=== PATIENT | female | born 2000 | race Hispanic/Latino ===

== ENCOUNTER 2018-09-20 13:00 | Emergency (ER) | payer OTHER ==
[2018-09-20 13:38] LABS: #Eosinphils 0.1 thou/uL (0.0-0.7); #Lymphocytes 2.3 thou/uL (1.20-3.40); #Monocytes 0.4 thou/uL (0.11-0.59); #Neutrophils 4.7 thou/uL (1.40-6.50); %Basophils 0.6 % (0.0-1.0); %Eosinophils 0.9 % (0.0-10.0); %Lymphocytes 30.4 % (28.0-48.0); %Monocytes 5.3 % (0.0-4.0); %Neutrophils 62.8 % (31.0-61.0); Hemoglobin 13.9 g/dL (12.0-16.0); Mean Corpuscular HGB CONC 33.1 g/dL (32.0-36.0); Mean Corpuscular Volume 93.6 fL (78.0-98.0); Mean Platelet Volume 9.1 fL (7.4-10.4); Platelet Count 228 thou/uL (130-400); RBC Distribution Width 11.1 % (11.5-14.5); Red Blood Cell (RBC) Count 4.49 mill/uL (4.00-5.20); White Blood Cell (WBC) Count 7.5 thou/uL (4.8-10.8)
[2018-09-20 13:53] LABS: BHCG - Serum Negative (NEGATIVE); Pregs Control Background? CLEAR/WHITE (CLR/WHITE); Pregs Control Bar Appear? YES (CONTROL BAR)
== END 2018-09-20 14:16 | disposition home or self-care (01) ==
LOC: ERS 13:00
DX: N93.9 Abnormal uterine and vaginal bleeding, unspecified (principal)
CPT/HCPCS: 36415; 84703; 85025; 99284

== ENCOUNTER 2019-10-08 22:36 | Emergency (ER) | payer OTHER ==
[2019-10-08 23:12] LABS: Bilirubin Negative (Negative); Blood, Urine Negative (Negative); Clarity Clear (Clear); Glucose, Urine (Dipstick) Normal (Negative); Leukocyte Negative Leu/uL (Negative); Nitrite Negative (Negative); Protein, Urine (Dipstick) Negative (Neg-Trace); Urobilinogen Normal mg/dL (Less than 2)
[2019-10-08 23:13] LABS: Pregnancy Test - Urine (BHCG) POSITIVE (Negative); Pregu Control Background? CLEAR/WHITE (CLR/WHITE); Pregu Control Bar Appear? YES (CONTROL BAR); Specific Gravity 1.018 (1.002-1.036)
[2019-10-09 00:11] LABS: #Basophils 0.1 thou/uL (0.0-0.2); #Eosinphils 0.1 thou/uL (0.0-0.7); #Lymphocytes 2.6 thou/uL (1.20-3.40); #Monocytes 0.7 thou/uL (0.11-0.59); #Neutrophils 6.3 thou/uL (1.40-6.50); %Eosinophils 0.9 % (0.0-10.0); %Lymphocytes 26.6 % (21.0-51.0); %Monocytes 7.3 % (0.0-10.0); %Neutrophils 64.3 % (42.0-75.0); Hemoglobin 12.7 g/dL (12.0-16.0); Mean Corpuscular HGB CONC 35.2 g/dL (32.0-36.0); Mean Corpuscular Hemoglobin 32.5 pg (27.0-31.0); Mean Corpuscular Volume 92.4 fL (78.0-98.0); Mean Platelet Volume 9.3 fL (7.4-10.4); Platelet Count 207 thou/uL (130-400); RBC Distribution Width 10.9 % (11.5-14.5); Red Blood Cell (RBC) Count 3.89 mill/uL (4.20-5.40); White Blood Cell (WBC) Count 9.8 thou/uL (4.8-10.8)
--- NOTE | 2019-10-09 08:10 | ULT ---
PRELIMINARY REPORT/[facility]/EMERGENCY AFTER HOURS PROCEDURE EXAM: US Obstetrical, Complete <14 weeks CLINICAL HISTORY: Pelvic cramping pain, brown vaginal discharge, N/V TECHNIQUE: Transabdominal imaging of the maternal pelvis and a <14 week gestation with image documentation. COMPARISON: None provided. FINDINGS: GESTATION: CRL of 5.4 mm corresponds to 6 weeks 2 days with a heartbeat of 113 bpm UTERUS: Unremarkable. No myometrial mass. Measures 8.1 x 4.0 x 5.0 cm CERVIX: Closed. Unremarkable. OVARIES: Unremarkable. No mass. The RIGHT side measures 3.5 x 2.3 x 2.3 cm and the LEFT side measures 2.7 x 1 .7 x 3.1 cm FREE FLUID: Mild cul-de-sac free fluid. IMPRESSION: Single viable intrauterine . No acute abnormality. ELECTRONICALLY SIGNED BY: Larry Tam MD Oct 09, 2019 1:02:24 AM CDT This report is intended for review by the ordering physician only, in accordance of law. If you recei ve this report in error, please call [facility] at [phone]. FINAL REPORT EMERGENT AFTER HOURS AFTER HOURS OB ULTRASOUND: IMPRESSION: Agree with the preliminary interpretation. POS: [facility]
[2019-10-12 15:42] LABS: Chlamydia by PCR Not Detected (NotDetected); GC by PCR Not Detected (NotDetected)
== END 2019-10-09 02:04 | disposition home or self-care (01) ==
LOC: ERS 22:36
DX: O99.89 Other specified diseases and conditions complicating pregnancy, childbirth and the puerperium (principal); N89.8 Other specified noninflammatory disorders of vagina; Z3A.01 Less than 8 weeks gestation of pregnancy
CPT/HCPCS: 36415; 76856; 81003; 81025; 84702; 85025; 86900; 86901; 87480; 87491; 87510; 87591; 87660; 93976

== ENCOUNTER 2020-05-26 11:28 | Inpatient (IN) | payer OTHER ==
[~2020-05-26 11:28] MED LIST: Bupivacaine HCl 0.25%/Epi 0.0005/PF 10 ML VIAL FS ONE
[2020-05-26] MEDS ORDERED: hydrALAZINE 20 MG/ML VIAL SLOW IVP PRN ×2 (11:57→12:39)
[2020-05-26 12:21] VITALS: BMI 26.6
[2020-05-26 12:27] LABS: Amnisure Test No Membranes Rupture (No Rupture)
[2020-05-26 12:28] LABS: Amnisure Internal Control QC ACCEPTABLE (ACCEPTABLE)
[2020-05-26] MEDS ORDERED: Lidocaine 1% (PF) 30 ML VIAL SC PRN (12:39)
[2020-05-26] MEDS ORDERED: Ondansetron PF 4 MG/2 ML Vial IVP PRN ×2 (12:39→20:25)
[2020-05-26] MEDS ORDERED: HYDROcodone/Acetaminophen 5/325 mg Tablet PO PRN ×2 (12:39)
[2020-05-26] MEDS ORDERED: Carboprost 250 MCG/ML AMP IM PRN (12:39)
[2020-05-26] MEDS ORDERED: Ibuprofen 800 MG TAB PO PRN (12:39)
[2020-05-26] MEDS ORDERED: Promethazine HCl 25 MG/ML VIAL IM PRN ×2 (12:39→20:25)
[2020-05-26] MEDS ORDERED: Misoprostol 200 MCG TAB PR PRN (12:39)
[2020-05-26] MEDS ORDERED: Diphenoxylate HCl/Atropine Tablet PO PRN ×2 (12:39)
[2020-05-26] MEDS ORDERED: Methylergonovine 0.2 MG/ML VIAL IM PRN (12:39)
[2020-05-26] MEDS ORDERED: Acetaminophen 500 MG TAB PO PRN (12:39)
[2020-05-26] MEDS ORDERED: Butorphanol Tartrate 1 MG/ML VIAL SLOW IVP PRN (12:39)
[2020-05-26 13:19] LABS: Mean Corpuscular Hemoglobin 28.6 pg (27.0-31.0); Mean Corpuscular Volume 84.2 fL (78.0-98.0); Platelet Count 182 thou/uL (130-400); RBC Distribution Width 12.4 % (11.5-14.5); Red Blood Cell (RBC) Count 4.19 mill/uL (4.20-5.40); White Blood Cell (WBC) Count 9.2 thou/uL (4.8-10.8)
[2020-05-26 13:57] LABS: HBSAg Index 0.23 S/CO (0-0.99); Hep B Surf Ag Non-Reactive S/CO (NonReactive)
[2020-05-26 13:58] LABS: Syphilis Antibody Nonreactive (Nonreactive); Syphilis Antibody Index 0.04 S/CO (<1.00 Non-Reactive)
[2020-05-26] MEDS: Lactated Ringer's 1,000 ML IV SCH ×2 (17:30→20:05)
[2020-05-26] MEDS ORDERED: NS w/ Oxytocin 30 units 500 ML IV SCH (18:15)
[2020-05-26] MEDS ORDERED: Fentanyl 4 mcg/Bup 0.1% Cadd 100 ML ONE (19:26)
[2020-05-26 19:34] LABS: SARS-CoV-2 PCR by NAA Not Detected (NotDetected)
[2020-05-26] MEDS ORDERED: Acetaminophen 325 MG TAB PO PRN (20:25)
[2020-05-26] MEDS ORDERED: Lactated Ringer's 500 ML IV PRN (20:25)
[2020-05-26] MEDS ORDERED: ePHEDrine 50 MG/ML VIAL SLOW IVP PRN (20:25)
[2020-05-26] MEDS ORDERED: diphenhydrAMINE 50 MG/ML VIAL IVP PRN (20:25)
[2020-05-26] MEDS ORDERED: Naloxone HCl 0.4 mg/ml Vial IVP PRN ×2 (20:25)
[2020-05-26] MEDS ORDERED: Fentanyl 4 mcg/Bupivacaine 0.1% Cassette 100 ML EPIDURAL SCH (20:30)
[2020-05-26] MEDS ORDERED: Communication Order-Pharmacy FS SCH (20:30)
[2020-05-26] MEDS: NS w/ Oxytocin 30 units 500 ML IVPB PRN (23:00)
--- NOTE | 2020-05-26 23:21 | PDOC.LDHP ---
Labor and Delivery H&P Chief complaint: contractions, loss of fluid HPI: Reports leaking fluid at 10pm last night. Some continued leaking through the day. She has started having mild contractions, but did not start feeling them until she got into the room Current gestational age (weeks): 39 Due date: 05/26/20 Dating criteria: first trimester ultrasound Grav: 1 Para: 0 Current complications: none Abnormal US findings: No Current medications: pre- vitamins Previous surgical history: none Allergies/Adverse Reactions: Allergies Allergy/AdvReac Type Severity Reaction Status Date / Time No Known Allergies Allergy Verified 05/26/20 12:15 Social history: none - Physical Exam Vital signs reviewed and normal: yes General: breathing through contractions Lungs: nonlabored breathing Abdomen: gravid FHT: category 1 - Vaginal Exam cm dilated: 5 Effacement: 90% Station: -1 - OB Labs Blood type: O RH: positive Antibody Screen: negative HIV: negative RPR: negative HEPSAg: negative 1 hour GCT: negative GBS: negative Urine drug screen: negative Rubella: immune - Assessment L&D Assessment: term patient in labor - Plan Plan: admit to L&D, labor augmentation if indicated, informed consent obtained, anesthesia consult for pain management
--- NOTE | 2020-05-26 23:32 | PDOC.OPDEL ---
OB Operative/Delivery Note Delivery Dr/Surgeon: Light Pre-Delivery Diagnosis: active labor Procedure/Post Delivery Dx: spontaneous vaginal delivery Weeks gestation: 39 Anesthesia: epidural - Findings A Sex: female - 1 min: 8 - 5 min: 9 - Additional Findings/Plan Placenta delivered: manual removal Repaired Obstetrical Laceration: 1st degree Estimated blood loss: 311mL Post delivery plan: routine recovery
[2020-05-27] MEDS: NS w/ Oxytocin 30 units 500 ML IVPB PRN
[2020-05-27] MEDS ORDERED: Misoprostol 200 MCG TAB VAG PRN (01:12)
[2020-05-27] MEDS ORDERED: Ondansetron PF 4 MG/2 ML Vial IVP PRN (01:12)
[2020-05-27] MEDS ORDERED: Benzocaine-Menthol 82.5 ML CAN TOP PRN (01:12)
[2020-05-27] MEDS ORDERED: NS / Oxytocin 40 units/1000ml 1,000 ML IV SCH (01:12)
[2020-05-27] MEDS ORDERED: HYDROcodone/Acetaminophen 5/325 mg Tablet PO PRN ×2 (01:12)
[2020-05-27] MEDS ORDERED: Bisacodyl 10 MG SUPP PR PRN (01:12)
[2020-05-27] MEDS ORDERED: hydrALAZINE 20 MG/ML VIAL SLOW IVP PRN (01:12)
[2020-05-27] MEDS ORDERED: Milk Of Magnesia 30 ML UDCUP PO PRN (01:12)
[2020-05-27] MEDS: Ibuprofen 800 MG TAB PO SCH ×3 (05:49→21:40)
[2020-05-27] MEDS: Ferrous Sulfate 325 MG TAB PO SCH ×2 (07:49→18:01)
[2020-05-27] MEDS ORDERED: Adacel (T-DAP) 0.5 ML SYRINGE IM ONE (09:00)
[2020-05-27] MEDS: Prenatal Vitamin 1 TAB PO SCH (09:11)
[2020-05-27] MEDS: Docusate Calcium (SURFAK) 240 MG CAP PO SCH ×2 (09:11→21:40)
[2020-05-28] MEDS: Ibuprofen 800 MG TAB PO SCH (06:12)
[2020-05-28] MEDS: Ferrous Sulfate 325 MG TAB PO SCH (07:45)
--- NOTE | 2020-05-28 08:50 | PDOC.PP ---
Post Progress Note Post Day #: 1 Subjective: pt is doing well. Breast feeding is ok. No concerns today. PO intake tolerated: yes Flatus: yes Ambulation: yes Vital Signs (12 hours) Temp Pulse Resp BP 05/28/20 00:45 97.6 F 81 20 119/79 Weight Weight 165 lb - Physical Examination General: NAD Respiratory: non-labored breathing Abdominal: no distention Extremities: negative homans (B) Skin: no rash Neurological: no gross focal deficits Psychiatric: A&Ox3, normal affect Result Diagrams: 05/26/20 13:02 Additional Labs: Post Labs Hep Bs Antigen Non-Reactive S/CO (NonReactive) 05/26/20 13:02 Blood Type O POSITIVE 05/26/20 13:02 (1) (spontaneous vaginal delivery) Code(s): O80 - ENCOUNTER FOR FULL-TERM UNCOMPLICATED DELIVERY Status: Acute (2) 39 weeks gestation of Code(s): Z3A.39 - 39 WEEKS GESTATION OF Status: Acute
[2020-05-28] MEDS: Docusate Calcium (SURFAK) 240 MG CAP PO SCH (09:21)
[2020-05-28] MEDS: Prenatal Vitamin 1 TAB PO SCH (09:21)
[2020-05-28 10:12] VITALS: BP 117/77; TEMP 98
== END 2020-05-28 13:05 | disposition home or self-care (01) | DRG 807 ==
LOC: L&D/OP 11:28 → L&D 12:41 → 3SW 05-27 02:26
PROVIDERS: ADMIT Obstetrics & Gynecology; ATTEND Obstetrics & Gynecology
PROC: 10E0XZZ Delivery of Products of Conception, External Approach (ICD-10-PCS; principal; 2020-05-26)
PROC: 0HQ9XZZ Repair Perineum Skin, External Approach (ICD-10-PCS; 2020-05-26)
PROC: 10D17Z9 Manual Extraction of Products of Conception, Retained, Via Natural or Artificial Opening (ICD-10-PCS; 2020-05-26)
DX: O70.0 First degree perineal laceration during delivery (principal); Z37.0 Single live birth; Z3A.39 39 weeks gestation of pregnancy; Z20.822 Contact with and (suspected) exposure to COVID-19
CPT/HCPCS: 36415; 84112; 85027; 86780; 86850; 86900; 86901; 87340; 87635; 99285; J2590; U0003; U0005